=== PATIENT | female | born 2005 | race Caucasian/White ===

== ENCOUNTER 2024-11-30 22:21 | Emergency (ER) | payer BC, SELFPAY ==
[2024-11-30 22:23] VITALS: BP 113/70; PULSE 76; RESP 16; TEMP 36.4; O2SAT 98; BMI 22.7
--- NOTE | 2024-11-30 22:58 | ED_ITS ---
HPI - General Adult General Date Seen: 11/30/24 Chief complaint: Extremity Pain/Injury, Upper Stated complaint: injured R hand playing frisbee Time Seen by Provider: 11/30/24 22:58 History of Present Illness HPI narrative: Pleasant 19-year-old female college student presenting to the ER today for right hand injury. She hit her hand on the turf this evening at about 955 when she was doing a diving catch while playing Frisbee. She has pain and swelling in her right hand, with most prominent swelling involving the 4th and 5th digits. She describes that she was diving to catch the frisbee and she caught it with her hands flexed around almost in a fist. When she landed on the turf she essentially ?punched the ground? and suffered bruising and scraping to the dorsum of the MCP joints of her 5th digit, and also her 4th digit. No other injuries from the fall. No wrist pain. No pain involving her thumb, 2nd and 3rd digits. Related Data Home Medications ?Medication ?Instructions ?Recorded ?Confirmed No Known Home Medications 11/30/24 11/30/24 Allergies Allergy/AdvReac Type Severity Reaction Status Date / Time No Known Drug Allergies Allergy Verified 11/30/24 22:27 Exam Narrative: Exam Narrative: Constitutional: Appears well-developed and well-nourished. Very polite. Non- toxic appearing. HENT: Head: Atraumatic. No signs of injury. Nose: No nasal discharge. Mouth/Throat: Mucous membranes are moist. Eyes: Conjunctivae normal and EOM are normal. Pupils are equal, round, and reactive to light. Right eye exhibits no discharge. Left eye exhibits no discharge. No icterus. Neck: Normal range of motion. Neck supple. No adenopathy. No stridor. Cardiovascular: Normal rate and regular rhythm. No murmur heard. No murmurs, rubs, or gallops. Brisk capillary refill Pulmonary/Chest: Effort normal. No stridor. No respiratory distress. No retractions. Musculoskeletal: Normal except for her right hand 5th digit, 4th digit- Normal range of motion. No edema. No tenderness. No deformity. Inspection of the right hand reveals ecchymosis, swelling and superficial abrasions affecting primarily the dorsum of the 5th MCP and a little bit less so on the dorsum of the 4th MCP. She has no tenderness over the elbow, forearm, wrist. No tenderness over the snuffbox. Thumb, 2nd digit, 3rd digit nontender. She does have tenderness over the dorsum of the 5th metacarpal > 4th. No tenderness over the PIP, DI P, or fingers. Range of motion in the 5th digit and 4th digit are limited by pain. She has apprehension so has limited flexion of the MCP. Also limited flexion of the PIP but somewhat better flexion of the DI P. Intact radial and ulnar digital nerve sensory function in the 5th digit, 4th digit, 3rd digit. Intact radial, median, ulnar sensory function in the hand. Normal distal cap refill. Neurological: Alert. Normal strength. No cranial nerve deficit or sensory deficit. Coordination normal. GCS eye subscore is 4. GCS verbal subscore is 5. GCS motor subscore is 6. Skin: Skin is warm. No rash noted. Const: Vital Signs, click to edit/add: Vital Signs - 24 hr 11/30/24 22:23 Temperature 97.5 F L Pulse Rate [Left P ulse Oximeter] 76 Respiratory Rate 16 Blood Pressure [Ri ght Upper Arm] 113/70 Pulse Oximetry 98 Oxygen Delivery Me thod Room Air Course Vital Signs Vital signs: Initial Vital Signs Temperature 97.5 F L 11/30/24 22:23 Temperature Source Temporal Artery Scan 11/30/24 22:23 Pulse Rate 76 11/30/24 22:23 Pulse Rhythm Regular 11/30/24 22:23 Respiratory Rate 16 11/30/24 22:23 Blood Pressure 113/70 11/30/24 22:23 Blood Pressure Mean 84 11/30/24 22:23 Blood Pressure Position Sitting 11/30/24 22:23 Pulse Oximetry 98 11/30/24 22:23 Oxygen Delivery Method Room Air 11/30/24 22:23 Vital Signs Temperature 97.5 F L 11/30/24 22:23 Pulse Rate 76 11/30/24 22:23 Respiratory Rate 16 11/30/24 22:23 Blood Pressure 113/70 11/30/24 22:23 Pulse Oximetry 98 11/30/24 22:23 Oxygen Delivery Method Room Air 11/30/24 22:23 Temperature 97.5 F L 11/30/24 22:23 Pulse Rate 76 11/30/24 22:23 Respiratory Rate 16 01/31/25 22:23 Blood Pressure 113/70 11/30/24 22:23 Pulse Oximetry 98 11/30/24 22:23 Oxygen Delivery Method Room Air 11/30/24 22:23 Medical Decision Making MDM Narrative Medical decision making narrative: Pleasant 19-year-old female college student from [place] presenting the ER today with a right hand injury. She has bruising and swelling involving the dorsum of her hand near the MCP joints of the 5th digit> 4th digit. She suffered the injury this evening prior to arrival when she was doing a diving catch for for h is bee. She has neural is vascularly intact in the hand. She has limited flexion and extension of the MCP, PIP, DI P joints due to pain and apprehension. Intact distal or sensory function. Normal distal cap refill. X-rays of the hand her obtain her fortunately negative for any acute fracture. She was placed into an Alumafoam splint by nursing to help protect her injured 5th digit MCP joint. Will pursue a course of careful watchful waiting. Ice for 15-20 minutes every few hours. Tylenol or ibuprofen if needed for pain. Return to the ER for worsening symptoms. Otherwise outpatient follow-up with orthopedic clinic if not improving within the next 3-5 days. Patient and her friend are comfortable this plan of care. Imaging Data XR Right hand: Attestation: I have reviewed the pertinent imaging results. Radiologist's impression: IMPRESSION: 1. No acute osseous injuries or abnormalities are noted. Discharge Plan Discharge Clinical Impression: Contusion of hand, Sprain of finger of right hand Patient Disposition: Home, Self-Care Condition: Stable Instructions: Contusion in Adults (ED), Finger Sprain (ED) Additional Instructions: Please try to rest her right hand. Avoid strenuous physical activity or lifting objects more than 5 lb. Wear the splint to protect her finger and knuckle until it is starting to feel better. Ice your finger for 15-20 minutes every few hours to help reduce swelling and bruising. You can use Tylenol or ibuprofen if needed for pain. If you have worsening or severe pain, or other concerns, please come back to the ER right away to be rechecked. If your fingers not improving within 3-5 days, please follow-up with your doctor or with the [facility]. You can call [phone] to schedule an appointment with the orthopedic clinic. Good luck Prescriptions: No Action No Known Home Medications Follow Up/Referrals: Provider,Not a Local [Primary Care Provider] - Stand Alone Forms: [employer] Info Instructions
--- NOTE | 2024-11-30 22:58 | CRLHL7_ITS ---
For Patients: As a result of the Cures Act, medical imaging exams and procedure reports are released immediately into your electronic medical record. You may view this report before your referring provider. If you have questions, please contact your health care provider. INDICATION: Fall hand injury, fresbee TECHNIQUE: Hand radiograph 3 views right COMPARISON: None FINDINGS: Bone: No acute fractures or aggressive bone lesions are identified. Joint: The carpal and metacarpal-phalangeal joints are unremarkable in appearance. The interphalangeal joints are normal in appearance. Soft tissue: Unremarkable. No radiopaque foreign bodies are seen. IMPRESSION: 1. No acute osseous injuries or abnormalities are noted. Dictated by: Dwayne Parra MD @ 11/30/2024 23:15:53 (Electronically Signed)
--- OUTSIDE RECORDS SUMMARY | 2024-11-30 23:20 | XMS_ITS | Clinical Summary ---
Author Organization [facility] Address [address] [place] [address] Care Team Providers Care Vacuum Repairer Name Role Phone Unavailable Primary Care Provider Unavailabl e Source Comments PLEASE NOTE, if this patient is a minor, it may be UNLAWFUL to discuss sensitive information that is contained in these records (such as FAMILY PLANNING, MENTAL HEALTH or SUBSTANCE ABUSE) with the minor patient's parent or other person without the patient's specific authorization.[facility] Immunizations Name Administration Dates Next Due DTAP 02/14/2007, 5,2004,09/14 DTAP, UNSPECIFIED 02/14/2007, 5,2004,09/14 HEP B, PED/ADOL 01/13/2005,2004,2004 HPV 9 (Gardasil) 11/21/2019,10/19/2019 Hep A, Ped/adol, 2 Dose 02/14/2007 Hep A, adult 12/05/2018 Hib (PRP-T) 01/13/2005,2004,2004 IPV 11/12/2019, 5,2004,09/14 MENINGOCOCCAL MCV4P (MENACTRA) 10/19/2019 MENINGOCOCCAL VACCINE,CONJUG ATE (NON-INTERFACE) 10/19/2019 MMR (MMR II/Priorix) 10/19/2019,12/08/2005 MMRV, Live (Proquad) 05/13/2015 PNEUMOCOCCAL CONJUGATE PCV 7 01/13/2005,11/16/19 05,2004 TDAP 11/12/2019 Td (adult), 5 Lf tetanus tox oid, preservative free 05/07/2019,12/05/2018 Typhoid, Live 12/05/2018 Varicella, Live Vaccine 12/08/2005 Social History Tobacco Use Types Packs/Day Years Used Date Smoking Tobacco: Never Assessed Social Connections Answer Date Recorded Social Connections and Isolation 0 11/28/2019 Financial Resource Strain Answer Date R ecorded Financial Resource Strain 0 2019 Stress Answer Date Recorded Stress 0 11/28/2019 Physical Activity Answer Date Recorded Physical Activity 0 11/28/2019 Food Insecurity Answer Date Recorded Food 0 11/28/2019 Transportation Needs Answer Date Record ed Transportation 0 11/28/2019 Housing Stability Answer Date Recorded Housing 0 11/28/2019 Safety and Environment Answer Date Ozzie rded Safety 0 11/28/2019 Utilities Answer Date Recorded Utilities 0 11/28/2019 Employment Answer Date Recorded Employment 0 11/28/2019 Comments Unknown Sex and Gender Information Value Date Recorded Sex Assigned at Not on file Legal Sex Female 2:11 PM PST Gender Identity Female 12/02/2019 3:34 PM PST Sexual Orientation Not on file Plan of Treatment Health Maintenance Due Date Last Done Comments Hepatitis C Screening 2004 Tobacco Screening 2004 Chlamydia Screening 2017 Gonorrhea Screening 2017 HIV Screening 2019 Relationship Safety Screening/Counseling 2019 Hypertension Screening (#1) 2022 Syphilis Screening 07/16/2022 [id number] ( season) 2024 11/05/2021, 03/06/2021, 02/13/2021 Imm-Influenza (#1) 2024 Alcohol and Drug Screen 10/31/2024 Depression Annual Screen 10/31/2024 Imm-DTaP/Tdap/Td (7 - Td or Tdap) 11/12/2029 11/12/2019, 05/07/2019, 12/05/2018, Additional history exists Imm-Hepatitis B Completed 01/13/2005, 10/31, 2004 Imm-Varicella Completed 05/13/2015, 04/30, 12/08/2005 Imm-Hepatitis A Completed 12/05/2018, 02/14/2007 Imm-MMR Completed 10/19/2019, 04/30, 12/08/2005 Imm-HPV Completed 12/24/2021, 11/01, 10/19/2019
--- OUTSIDE RECORDS SUMMARY | 2024-11-30 23:20 | XMS_ITS | Clinical Summary ---
Author Organization [facility] Address [address] [place] [address] Care Team Providers Care Doctor Of Audiology Name Role Phone Pcp, None Primary Care Provider Unavailabl e Social History Tobacco Use Types Packs/Day Years Used Date Smoking Tobacco: Never Assessed Comments Unknown Sex and Gender Information Value Date Recorded Sex Assigned at Not on file Legal Sex Female 12:53 PM PDT Gender Identity Not on file Sexual Orientation Not on file Plan of Treatment Not on file Insurance [facility] [employer] Care Teams Doctor Of Audiology Relationship Specialty Start Date End Date Pcp, None Identifies patients without a PCP or unassigned PCP - General 02/23/22
--- NOTE | 2024-11-30 23:53 | ED.NURSE ---
Right hand/fifth finger splinted. CMS intact before and after splinting.
== END 2024-11-30 23:50 | disposition home or self-care (01) ==
PROVIDERS: Emergency Provider Emergency Medicine
DX: S63.616A Unspecified sprain of right little finger, initial encounter (principal); W01.198A Fall on same level from slipping, tripping and stumbling with subsequent striking against other object, initial encounter; Y93.74 Activity, frisbee
CPT/HCPCS: 29130; 73130; 99282; 99283

== ENCOUNTER 2025-02-22 11:23 | Emergency (ER) | payer BC, SELFPAY ==
[2025-02-22] VITALS (14 sets, daily range): BP systolic 103–122; BP diastolic 62–76; PULSE 57–72; RESP 11–61; TEMP 37.2; O2SAT 99–100; BMI 23.5
--- OUTSIDE RECORDS SUMMARY | 2025-02-22 11:25 | XMS_ITS | Clinical Summary ---
Author Organization [facility] Address [address] [place] [address] Care Team Providers Care Belt Tender Name Role Phone Unavailable Primary Care Provider Unavailabl e Source Comments PLEASE NOTE, if this patient is a minor, it may be UNLAWFUL to discuss sensitive information that is contained in these records (such as FAMILY PLANNING, MENTAL HEALTH or SUBSTANCE ABUSE) with the minor patient's parent or other person without the patient's specific authorization.[facility] Immunizations Immunization Administration Dates Next Due DTAP 02/14/2007, 5,2004,09/14 [...] Health Maintenance Due Date Last Done Comments Anxiety Screening 2004 Hepatitis C Screening 2004 Tobacco Screening 2004 Chlamydia Screening 2017 Gonorrhea Screening 2017 HIV Screening 2019 Relationship Safety Screening/Counseling 2019 Imm-Meningococcal B (1 of 2 - Standard) 2020 Hypertension Screening (#1) 2022 Syphilis Screening 07/16/2022 [id number] ( season) 2024 11/05/2021, 03/06/2021, 02/13/2021 Imm-Influenza [...]
--- OUTSIDE RECORDS SUMMARY | 2025-02-22 11:25 | XMS_ITS | Clinical Summary ---
Author Organization [facility] Address [address] [place] [address] Care Team Providers Care Securities Dealer Name Role Phone Pcp, None Primary Care Provider Unavailabl e Social History Tobacco Use Types Packs/Day Years Used Date Smoking Tobacco: Never Assessed Comments Unknown Sex and Gender Information Value Date Recorded Sex Assigned at Not on file Legal Sex Female 12:53 PM PDT Gender Identity Not on file Sexual Orientation Not on file Plan of Treatment Not on file Insurance [facility] [employer] Care Teams Securities Dealer Relationship Specialty Start Date End Date Pcp, None Identifies patients without a PCP or unassigned PCP - General 02/23/22
--- NOTE | 2025-02-22 11:34 | ED.GENADULT ---
HPI - General Adult General Time Seen by Provider: 11:34 Date Seen: 02/22/25 Chief complaint: Syncope/Fainted Stated complaint: fainting Time Seen by Provider: 02/22/25 11:27 Source: patient and RN notes reviewed Mode of arrival: ambulatory Limitations: no limitations History of Present Illness HPI narrative: This 19-year-old female is ambulatory into the ED with complaint of syncopal episodes. She has never had anything like this. She had been in bed, up for 10 minutes, grabbed her bathroom stuff and went to brush her teeth. She was standing at the sink and felt lightheaded, she noted stars and then noted her vision closing in, everything went black. She did go to the ground. She knows she hit the front of her head on something, has an abrasion over the knuckle of her right 5th finger, little abrasion over the point of her left elbow. It is not hurting to move her upper extremities at all, has no pain with range of motion in any joint in specifically not in the involved scuffed areas. She has no headache, no visual changes at this time. She was ambulatory afterwards. She has no history of prior concussion and does not have any headache now. She had a 2nd episode when she is being help from the bathroom and the witnessed noticed that she was breathing fast and shaking. She is a student at [employer], studying psychology. She is from [facility] in [place]. A few weeks ago she did have upper respiratory symptoms and notes that whenever she gets a cold she has a difficult time clearing the congestion from her lungs. She has had no fevers, is still coughing some. She has an albuterol inhaler from her primary physician at home and has been using it to help with some of the lung symptoms. She did not feel any palpitations, no regular heartbeat with this. She just completed her menstrual cycle, uses the vaginal ring for contraception. She is not aware of any family history of any cardiac conditions, no arrhythmias, no premature cardiac sudden . Related Data Home Medications ?Medication ?Instructions ?Recorded ?Confirmed etonogestrel 0.12 mg-ethinyl vag ring vaginal 02/22/25 estradiol 0.015 mg/24 hr vaginal ring (EnilloRing) Allergies Allergy/AdvReac Type Severity Reaction Status Date / Time No Known Drug Allergies Allergy Verified 02/22/25 11:32 Review of Systems Status of ROS: Reports: 6 or more systems reviewed and unremarkable except as noted in History and below PFS PFS Social History Non-prescribed substance use: denies use Exam Const: Vital Signs, click to edit/add: Vital Signs - 24 hr 02/22/25 11:26 02/22/25 11:57 02/22/25 12:25 Temperature 98.9 F Pulse Rate 61 Pulse Rate [Right Pulse Oximeter] 68 Pulse Rate [orthos tatic lying] 59 L Pulse Rate [orthos tatic sitting] 66 Pulse Rate [orthos tatic standing] 72 Respiratory Rate 18 18 Blood Pressure Blood Pressure [Ri ght Upper Arm] 116/70 Blood Pressure [or thostatic lying] 109/62 Blood Pressure [or thostatic sitting] 107/67 Blood Pressure [or thostatic standing ] 103/76 Pulse Oximetry 100 99 Oxygen Delivery Me thod Room Air 02/22/25 12:30 02/22/25 12:32 02/22/25 12:33 Temperature Pulse Rate 59 L 61 65 Pulse Rate [Right Pulse Oximeter] Pulse Rate [orthos tatic lying] Pulse Rate [orthos tatic sitting] Pulse Rate [orthos tatic standing] Respiratory Rate 11 L 12 14 Blood Pressure 117/69 Blood Pressure [Ri ght Upper Arm] Blood Pressure [or thostatic lying] Blood Pressure [or thostatic sitting] Blood Pressure [or thostatic standing ] Pulse Oximetry 100 100 99 Oxygen Delivery Me thod 02/22/25 12:45 02/22/25 13:00 02/22/25 13:02 Temperature Pulse Rate 57 L 57 L 60 Pulse Rate [Right Pulse Oximeter] Pulse Rate [orthos tatic lying] Pulse Rate [orthos tatic sitting] Pulse Rate [orthos tatic standing] Respiratory Rate 11 L 27 H Blood Pressure 122/72 Blood Pressure [Ri ght Upper Arm] Blood Pressure [or thostatic lying] Blood Pressure [or thostatic sitting] Blood Pressure [or thostatic standing ] Pulse Oximetry 100 100 99 Oxygen Delivery Me thod This 19-year-old female is alert, interactive, no apparent distress. Sitting upright on the bed in exam room 2. She has a very superficial faint linear lying about 1.5 cm vertically on her left upper forehead above the eyebrow. This is presumably where she potentially hit something, it is not tender when I palpate, no step-off, no significant tissue swelling. She has symmetric facial function, pupils equal round reactive, sclerae clear, extraocular muscles intact. TMs and canals normal, no traumatic or infectious change. Oropharynx normal mucosa, no exudates erythema, mucosa is normal. Oropharynx posteriorly normal. She has no pain when opening the jaw. Neck is supple, no adenopathy, jugular venous distension, no thyromegaly masses or nodules. Lungs are clear, good air entry, wheezing or crackles, no tachypnea, no accessory muscle use. CV regular rate and rhythm, no murmur, normal S1-S2, no S3-S4. Abdomen is soft, nontender, nondistended. She was ambulatory into the ED of her own accord. She has a very superficial abrasion overlying the dorsal left finger, minimal abrasion over the point of her left elbow. She has full range of motion of both of these upper extremities, no concern for any underlying fracture, no joint swelling. Neurologically she is completely intact. Documenting provider has reviewed patient's vital signs: yes Course Course ED Course: Have reviewed with patient CT imaging for syncope. She is having no headache, no residual symptoms that I am concerned this was a neurologic event. I a have discussed with her that I believe head CT imaging at this time with how she is presenting currently, risks of the radiation from the head CT outweigh any benefit. We will reconsider this if there is any change in status while here. Will do orthostatics, get an EKG, have her on cardiac monitoring. Will do full complement of labs. Have discussed that she is in appropriate H category for vasovagal syncope. Will consider thromboembolic disease, arrhythmia, potential infectious etiology with her recent respiratory issues. Reevaluation(s) Time of Reevaluation #1: 13:25 Reevaluation #1: Have reviewed negative workup with patient. All of her labs are normal. She has had no arrhythmia here. Her EKG was good. Chest x-ray with no evidence of infection. We discussed discharge to home, likely vasovagal syncope this morning. Did review strategies to help prevent this. She does bring up that she has an ultimate Frisbee turn meant this weekend. If she is feeling up to it I do think it is reasonable that she play if she wants to. Will provider a note to be out of this tournament if she needs the rest. We did review if she has further episodes, would recommend further evaluation, potentially Cardiology and even possibly Neurology referral based on future presenting symptoms. This does not appear to have been any seizure or neurologic abnormality at this time with presenting symptoms. Vital Signs Vital signs: Initial Vital Signs Temperature 98.9 F 02/22/25 11:26 Temperature Source Temporal Artery Scan 02/22/25 11:26 Pulse Rate 68 02/22/25 11:26 Pulse Rhythm Regular 02/22/25 11:26 Pulse Strength 3+ Normal 02/22/25 11:26 Respiratory Rate 18 02/22/25 11:26 Blood Pressure 116/70 02/22/25 11:26 Blood Pressure Mean 85 02/22/25 11:26 Blood Pressure Position Sitting 02/22/25 11:26 Pulse Oximetry 100 02/22/25 11:26 Oxygen Delivery Method Room Air 02/22/25 11:26 Vital Signs Temperature 98.9 F 02/22/25 11:26 Pulse Rate 68 02/22/25 11:26 Respiratory Rate 18 02/22/25 11:26 Blood Pressure 116/70 02/22/25 11:26 Pulse Oximetry 100 02/22/25 11:26 Oxygen Delivery Method Room Air 02/22/25 11:26 Temperature 98.9 F 02/22/25 11:26 Pulse Rate 60 02/22/25 13:02 Respiratory Rate 27 H 02/22/25 13:02 Blood Pressure 122/72 02/22/25 13:02 Pulse Oximetry 99 02/22/25 13:02 Oxygen Delivery Method Room Air 02/22/25 11:26 Medical Decision Making Lab Data Lab results reviewed: Yes I reviewed the patient's lab results Labs: Lab Results 02/22/25 Range/Units 12:08 WBC 7.90 (4.50-11.00) K/uL RBC 4.51 (4.00-5.20) m/uL Hgb 13.7 (12.0-16.0) gm/dL Hct 41.3 (33.0-51.0) % MCV 92 (80-100) fL MCH 30 (26-34) pg MCHC 33 (32-36) gm/dL RDW Coeff of Jakob 12.5 (11.5-15.5) % Plt Count 287 (140-440) K/uL Neut % (Auto) 74.0 H (42.0-72.0) % Lymph % (Auto) 18.0 L (20-44) % Mcintosh % (Auto) 7.1 (0.0-11.0) % Eos % (Auto) 0.5 (0.0-7.0) % Baso % (Auto) 0.4 (0.0-3.0) % Neut # (Auto) 5.80 (1.7-7.0) K/uL Lymph # (Auto) 1.40 (0.90-2.90) K/uL Mcintosh # (Auto) 0.60 (0.00-0.90) K/UL Eos # (Auto) 0.04 (0.00-0.50) K/uL Baso # (Auto) 0.03 (0.00-0.30) K/uL Abs Immat Gran (auto) 0.00 (0.00-0.30) K/uL Imm/Tot Granulo (auto) 0.0 % D-Dimer Quant (PE/DVT) 0.10 (0.00-0.50) ug/ml VBG pH 7.381 (7.32-7.43) VBG pCO2 47 (40-50) mmHG VBG pO2 38.6 (25-47) mmHG VBG HCO3 28 (21-28) mmol/L Sodium 137 (135-149) mmol/L Potassium 4.1 (3.6-5.1) mmol/L Chloride 101 (96-114) mmol/L Carbon Dioxide 27 (20-32) mmol/L Anion Gap 9 (7-15) mEq/L BUN 15 (5-24) mg/dL Creatinine 0.7 (0.5-1.5) mg/dL Estimated Creat Clear 124.67 Estimated GFR 127 ml/min Glucose 86 (60-115) mg/dL Lactate 0.8 (0.5-1.9) mmol/L Calcium 9.7 (8.4-10.6) mg/dL Total Bilirubin 0.7 (0.1-1.5) mg/dL AST 33 (12-35) U/L ALT 23 (4-35) U/L Alkaline Phosphatase 49 (40-150) U/L Troponin I < 0.01 (0.01-0.04) ng/mL C-Reactive Protein < 0.5 L (0.5-1.0) mg/dL NT-Pro-B Natriuret Pep < 20 pg/mL Total Protein 7.7 (6.0-8.3) g/dL Albumin 4.8 (3.3-5.0) g/dL TSH 1.190 (0.270-4.200) uIU/mL HCG, Qual Negative (Negative) Imaging Data Chest x-ray: Attestation: I have reviewed the pertinent imaging results. My impression: I do not see any acute cardiopulmonary pathology on my preliminary review. Radiologist's impression: Patient: POLA QUEZADA Facility:?[facility] Patient ID:?[id number] Site Patient ID:?[id number]. Site :?[id number] Study:?XRay-Chest Portable one view-02/22/2025 12:27:01 PM Ordering Physician:?Chester Lau Final Report: INDICATION: Syncope. TECHNIQUE: Chest 1 views. COMPARISON: None. FINDINGS: Cardiovascular and mediastinum: Heart size and vasculature are normal in caliber and appearance. Lungs and pleural spaces: Lungs are clear. No sign of infiltrate or mass. No sign of pleural effusion. No pneumothorax. Bones and soft tissues: No significant findings. IMPRESSION: No acute or significant findings. Dictated by Cornelius Arias MD @ 02/22/2025 12:29:01 PM (Electronic Signature) ECG Data Attestation: I personally reviewed and interpreted this ECG as follows: (Sinus bradycardia, 55 beats per minute. No evidence of any active ischemia, QT corrected 424 milliseconds.) Discharge Plan Discharge Clinical Impression: Vasovagal syncope Patient Disposition: Home, Self-Care Condition: Stable Instructions: Syncope (ED) Additional Instructions: This episode seems to be consistent with vasovagal syncope. However, should you have further episodes, I would recommend that you have further workup and evaluation. Cardiology and potentially neurology referral could be considered if you are having ongoing issues. Do recommend that you stay adequately hydrated, recommend some water before getting out of bed in the morning. If you can drink 8 oz of water while you are waking up prior to getting out of bed, this may be helpful. I have written a note for you to be out of the [employer] tournament this weekend. If you are feeling back to baseline, you certainly can attempt to play but do not recommend you playing unless you are 100% sure you are feeling well. If you have further concerns or issues, develop new or concerning symptoms, do recommend re-evaluation. Prescriptions: No Action etonogestrel-ethinyl estradiol [EnilloRing] 0.12-0.015 mg/24 hr ring VAGINAL Patient Comments: INSERT ONE RING VAGINALLY EVERY MONTH. LEAVE IN PLACE FOR 3 WEEKS THEN REMOVE FOR 1 WEEK Follow Up/Referrals: Provider,Not a Local [Primary Care Provider] - Stand Alone Forms: [employer] Info Instructions
--- NOTE | 2025-02-22 11:48 | CRLHL7_ITS ---
For Patients: As a result of the Century Cures Act, medical imaging exams and procedure reports are released immediately into your electronic medical record. You may view this report before your referring provider. If you have questions, please contact your health care provider. INDICATION: Syncope. TECHNIQUE: Chest 1 views. COMPARISON: None. FINDINGS: Cardiovascular and mediastinum: Heart size and vasculature are normal in caliber and appearance. Lungs and pleural spaces: Lungs are clear. No sign of infiltrate or mass. No sign of pleural effusion. No pneumothorax. Bones and soft tissues: No significant findings. IMPRESSION: No acute or significant findings. Dictated by Cornelius Arias MD @ 02/22/2025 12:29:01 PM (Electronically Signed)
[2025-02-22 12:18] LABS: HCO3 VBG 28 mmol/L (21-28); Lactate* 0.8 mmol/L (0.5-1.9); PCO2 VBG 47 mmHG (40-50); PO2 VBG 38.6 mmHG (25-47); pH VBG 7.381 (7.32-7.43)
[2025-02-22 12:21] LABS: Basophils Absolute Auto 0.03 K/uL (0.00-0.30); Basophils Percent Auto 0.4 % (0.0-3.0); Eosinophils Absolute Auto 0.04 K/uL (0.00-0.50); Eosinophils Percent Auto 0.5 % (0.0-7.0); Hematocrit 41.3 % (33.0-51.0); Hemoglobin* 13.7 gm/dL (12.0-16.0); Mean Corpuscular HGB Conc 33 gm/dL (32-36); Mean Corpuscular Hemoglobin 30 pg (26-34); Mean Corpuscular Volume 92 fL (80-100); Monocytes Percent Auto 7.1 % (0.0-11.0); Platelet Count* 287 K/uL (140-440); RDW Coefficient of Variation % 12.5 % (11.5-15.5); Red Blood Count 4.51 m/uL (4.00-5.20)
--- OUTSIDE RECORDS SUMMARY | 2025-02-22 12:23 | XMS_ITS | Clinical Summary ---
Author Organization [facility] Address [address] [place] [address] Care Team Providers Care Custodial Operations Manager Name Role Phone Unavailable Primary Care Provider [...] Hypertension Screening (#1) 2022 Syphilis Screening 07/16/2022 [id number] ( season) 2024 11/05/2021, 03/06/2021, 02/13/2021 Imm-Influenza [...]
--- OUTSIDE RECORDS SUMMARY | 2025-02-22 12:23 | XMS_ITS | Clinical Summary ---
Author Organization [facility] Address [address] [place] [address] Care Team Providers Care Supervisor [employer] Name Role Phone Pcp, None Primary Care Provider Unavailabl e Social History Tobacco Use Types Packs/Day Years Used Date Smoking Tobacco: Never Assessed Comments Unknown Sex and Gender Information Value Date Recorded Sex Assigned at Not on file Legal Sex Female 12:53 PM PDT Gender Identity Not on file Sexual Orientation Not on file Plan of Treatment Not on file Insurance [facility] [employer] Care Teams Supervisor [employer] Relationship Specialty Start Date End Date Pcp, None Identifies patients without a PCP or unassigned PCP - General 02/23/22
[2025-02-22 12:32] LABS: Slide Review Reflex No
[2025-02-22 12:35] LABS: Albumin* 4.8 g/dL (3.3-5.0); Chloride* 101 mmol/L (96-114)
[2025-02-22 12:36] LABS: Potassium* 4.1 mmol/L (3.6-5.1); Sodium* 137 mmol/L (135-149)
[2025-02-22 12:38] LABS: Alanine Aminotransferase* 23 U/L (4-35); Aspartate Amino Transferase* 33 U/L (12-35); Blood Urea Nitrogen* 15 mg/dL (5-24); Creatinine* 0.7 mg/dL (0.5-1.5); Est. Creatinine Clearance* 124.67; Estimated Glomerular Filt Rate 127 ml/min
[2025-02-22 12:39] LABS: Alkaline Phosphatase* 49 U/L (40-150); Anion Gap 9 mEq/L (7-15); Bilirubin Total* 0.7 mg/dL (0.1-1.5); Calcium* 9.7 mg/dL (8.4-10.6); Carbon Dioxide* 27 mmol/L (20-32); Glucose* 86 mg/dL (60-115); HCG Qualitative Serum* Negative (Negative); Total Protein* 7.7 g/dL (6.0-8.3)
[2025-02-22 12:55] LABS: C Reactive Protein* < 0.5 mg/dL (0.5-1.0); NT Pro B Type NatriureticPept* < 20 pg/mL; Troponin I* < 0.01 ng/mL (0.01-0.04)
== END 2025-02-22 13:45 | disposition home or self-care (01) ==
PROVIDERS: Emergency Provider Family Medicine
DX: R55 Syncope and collapse (principal)
CPT/HCPCS: 36415; 71045; 80053; 82803; 83605; 83880; 84443; 84484; 84703; 85025; 85379; 86140; 93005; 94761; 99284; 99285